=== PATIENT | male | born 1940 | race Caucasian/White ===

== ENCOUNTER 2019-03-04 06:22 | Outpatient (CLI) | payer MEDICARE, BC ==
[2019-03-04 11:20] LABS: PTT 32.1 SEC (22.9-36.1)
[2019-03-04 11:21] LABS: Hemoglobin 14.4 g/dL (14.0-18.0); Mean Corpuscular HGB CONC 33.3 g/dL (32.0-36.0); Mean Platelet Volume 8.5 fL (7.4-10.4); Platelet Count 170 thou/uL (130-400); RBC Distribution Width 11.9 % (11.5-14.5); Red Blood Cell (RBC) Count 4.51 mill/uL (4.70-6.10); White Blood Cell (WBC) Count 8.5 thou/uL (4.8-10.8)
[2019-03-04 11:28] LABS: Bilirubin Negative (Negative); Blood, Urine Negative (Negative); Clarity CLEAR (Clear); Glucose, Urine (Dipstick) Negative (Negative); Leukocyte Negative (Negative); Nitrite Negative (Negative); Protein, Urine (Dipstick) Negative (Neg-Trace); Specific Gravity, Urine 1.021 (1.002-1.036); Urobilinogen 0.2 mg/dL (0.2-1.0)
[2019-03-04 11:31] LABS: Bacteria/HPF None Seen HPF (None Seen); Hyaline Casts/LPF 0-3 HYALINE CAST LPF (0-3 Hyaline); RBC/HPF 0-3 HPF (0-3); Squamous Epithelial None Seen HPF (0-3); WBC/HPF None Seen HPF (0-3)
[2019-03-04 11:35] LABS: Anion Gap 12 mmol/L (10-20); BUN (Urea Nitrogen) 21 mg/dL (8.4-25.7); Calc. Creatinine Clearance 0 mL/min (70-130); Calcium 10.4 mg/dL (7.8-10.44); Carbon Dioxide 27 mmol/L (23-31); Chloride 105 mmol/L (98-107); Estimated GFR-MDRD 55; Glucose 154 mg/dL (83-110); Potassium 4.5 mmol/L (3.5-5.1); Sodium 139 mmol/L (136-145)
== END 2019-03-04 06:23 | disposition home or self-care (01) ==
LOC: LABBT 06:22
PROVIDERS: ATTEND Urology
DX: Z01.818 Encounter for other preprocedural examination (principal); N40.1 Benign prostatic hyperplasia with lower urinary tract symptoms; R35.1 Nocturia; R39.15 Urgency of urination
CPT/HCPCS: 80048; 81001; 85027; 85610; 85730; 87086; 93005; 93010

== ENCOUNTER 2019-03-13 05:55 | Observation (INO) | payer MEDICARE, BC ==
[2019-03-04 10:18] VITALS: BMI 27.0
[2019-03-13] MEDS ORDERED: Levofloxacin 500 mg/D5W 100 ml Premix Bag ONE (06:16)
[2019-03-13] MEDS ORDERED: Fentanyl 100 MCG/2 ML VIAL ONE ×3 (06:40→10:01)
[2019-03-13] MEDS ORDERED: B & O ONE (09:08)
[2019-03-13] MEDS ORDERED: Promethazine HCl 25 MG/ML VIAL IM PRN (09:25)
[2019-03-13] MEDS ORDERED: Promethazine HCl 25 MG/ML VIAL SLOW IVP PRN (09:25)
[2019-03-13] MEDS ORDERED: Ondansetron HCl/PF 4 MG/2 ML Vial IVP PRN (09:25)
[2019-03-13] MEDS ORDERED: Ondansetron PF 4 MG/2 ML Vial ONE (10:58)
[2019-03-13] MEDS ORDERED: PHENYLEPHRINE-NS 100 MCG/ML 10 ML SYRINGE ONE (10:58)
[2019-03-13] MEDS ORDERED: PROPOFOL 200 MG/20 ML VIAL ONE (10:58)
[2019-03-13] MEDS ORDERED: ePHEDrine 50 MG/ML VIAL ONE (10:58)
[2019-03-13] MEDS ORDERED: diphenhydrAMINE 25 MG CAP PO PRN (11:19)
[2019-03-13] MEDS ORDERED: Mag-Al 1200 mg/1200 mg/30 ML UDCUP PO PRN (11:19)
[2019-03-13] MEDS ORDERED: Bisacodyl 10 MG SUPP PR PRN (11:19)
[2019-03-13] MEDS ORDERED: hydrALAZINE 20 MG/ML VIAL SLOW IVP PRN (11:19)
[2019-03-13] MEDS ORDERED: Hyoscyamine Sulfate SL 0.125 mg Tablet SL PRN (11:19)
[2019-03-13] MEDS ORDERED: Acetaminophen 500 MG TAB PO PRN (11:19)
[2019-03-13] MEDS ORDERED: Ondansetron PF 4 MG/2 ML Vial IVP PRN (11:19)
[2019-03-13] MEDS ORDERED: Morphine 2 MG/ML SYRINGE SLOW IVP PRN (11:19)
[2019-03-13] MEDS ORDERED: traMADol HCl 50 MG TAB PO PRN (11:22)
--- NOTE | 2019-03-13 15:48 | OP ---
DATE OF PROCEDURE: 03/13/2019 SERVICE: Urology. PREOPERATIVE DIAGNOSIS: Benign prostatic hypertrophy. POSTOPERATIVE DIAGNOSIS: Benign prostatic hypertrophy. PROCEDURE PERFORMED: Transurethral resection of the prostate. INDICATIONS FOR PROCEDURE: Mr. Leong is a 78-year-old white male, who has BPH and significant lower urinary tract symptoms. He is on Flomax, which has helped, but not alleviated his symptoms. I discussed transurethral resection of the prostate with him with all risks and benefits discussed, and he has agreed to proceed forward. DESCRIPTION OF PROCEDURE: After identification of armband and verification of consent, the patient was brought back to the operating room, where he underwent general anesthesia with an LMA. He was placed in dorsal lithotomy position and prepped and draped in usual sterile fashion. After appropriate time-out, a lubricated 26-Bermudian visual obturator resectoscope sheath was inserted through the urethra, passed the prostate into the bladder. Both ureters were identified. The visual obturator was then switched out for the bipolar prostate resectoscope loop. Resection was started on the lateral anterior lobe, which was hanging out into the prostate. This was shaved down, and then the prostate was then circumferentially resected until near the capsule, but not through the capsule. The resection was taken from the bladder neck to the level of the verumontanum, taking care not to pass the verumontanum to avoid sphincteric injury. Bladder neck relaxing incisions were made at 5 and 7 o'clock to further open the bladder neck and the intervening tissue removed. Any residual prostate tissue, which was heaped up was also resected until everything was smooth. Meticulous hemostasis was performed, and all prostate chips were then evacuated. Re-inspection of the prostate revealed a few extra areas of hypertrophy, which were then further resected and cauterized. Final inspection after irrigation and removal of chips and decompression of the bladder demonstrated a wide-open prostate with no bleeding. The resectoscope was then removed with a bladder partially full and a 22-Bermudian 3-way catheter was inserted with ease into the bladder with 30 mL of sterile water instilled into the balloon. CBI was initiated. B and O suppository was placed in the patient's rectum. He was then taken out of lithotomy, had a StatLock, fixed, was awakened and taken to PACU for recovery in stable condition. COMPLICATIONS: None. ESTIMATED BLOOD LOSS: Minimal. RETAINED TUBES AND DRAINS: A 22-Bermudian three-way Altamirano catheter on CBI. SPECIMENS: Prostate chips. DISPOSITION: The patient will be held overnight for hematuria and CBI. We will plan a void trial in the morning and discharge tomorrow. Job ID: [id number]
[2019-03-13] MEDS ORDERED: Latanoprost 0.005% Ophth Soln 2.5 ml Bottle EA EYE SCH (21:00)
[2019-03-13] MEDS ORDERED: Atorvastatin Calcium 20 MG TAB PO SCH (21:00)
[2019-03-13] MEDS: Docusate 100 MG CAP PO SCH (21:17)
[2019-03-13] MEDS: Famotidine/PF 20 mg/2ml Vial SLOW IVP SCH (21:18)
[2019-03-13] MEDS: Oxybutynin 5 MG TAB PO PRN (21:21)
[2019-03-14 05:49] LABS: #Basophils 0.1 thou/uL (0.0-0.2); #Eosinphils 0.2 thou/uL (0.0-0.7); #Lymphocytes 2.8 thou/uL (1.20-3.40); #Monocytes 1.3 thou/uL (0.11-0.59); #Neutrophils 8.5 thou/uL (1.40-6.50); %Basophils 0.5 % (0.0-1.0); %Eosinophils 1.2 % (0.0-10.0); %Lymphocytes 21.5 % (21.0-51.0); %Monocytes 10.3 % (0.0-10.0); %Neutrophils 66.5 % (42.0-75.0); Hemoglobin 13.1 g/dL (14.0-18.0); Mean Corpuscular HGB CONC 33.4 g/dL (32.0-36.0); Mean Corpuscular Hemoglobin 32.2 pg (27.0-31.0); Mean Corpuscular Volume 96.5 fL (78.0-98.0); Mean Platelet Volume 8.5 fL (7.4-10.4); Platelet Count 163 thou/uL (130-400); RBC Distribution Width 11.9 % (11.5-14.5); Red Blood Cell (RBC) Count 4.06 mill/uL (4.70-6.10); White Blood Cell (WBC) Count 12.8 thou/uL (4.8-10.8)
[2019-03-14 06:23] LABS: Anion Gap 10 mmol/L (10-20); BUN (Urea Nitrogen) 16 mg/dL (8.4-25.7); Calc. Creatinine Clearance 68 mL/min (70-130); Calcium 9.6 mg/dL (7.8-10.44); Carbon Dioxide 25 mmol/L (23-31); Chloride 109 mmol/L (98-107); Estimated GFR-MDRD 59; Glucose 92 mg/dL (83-110); Potassium 4.7 mmol/L (3.5-5.1); Sodium 139 mmol/L (136-145)
[2019-03-14] MEDS: Famotidine/PF 20 mg/2ml Vial SLOW IVP SCH (08:43)
[2019-03-14] MEDS: Docusate 100 MG CAP PO SCH (08:43)
[2019-03-14] MEDS ORDERED: Prevnar 13-Val Conj/PF 0.5 ML SYRINGE IM ONE (09:00)
[2019-03-14] MEDS ORDERED: Timolol 0.25% Ophth Soln 5 ml Bottle R EYE SCH (09:00)
[2019-03-14] MEDS: Oxybutynin 5 MG TAB PO PRN (09:01)
[2019-03-14 11:58] VITALS: BP 134/77; TEMP 98.2
--- NOTE | 2019-03-15 10:26 | DIS ---
DATE OF ADMISSION: 03/13/2019 DATE OF DISCHARGE: 03/14/2019 (Observation only). HISTORY: Please see detailed H and P. In short, Mr. Leong is a 78-year-old gentleman with very bothersome urinary tract symptoms. He was brought to the operating room on 03/13/2019, for surgical therapy. HOSPITAL COURSE: The patient underwent transurethral resection of the prostate by Dr. Barbosa on 03/13/2019. There were no postoperative complications. He was maintained on continuous bladder irrigation overnight. He was discontinued in the morning on 03/14/2019. His urine remained clear, off CBI, and Altamirano catheter was removed. The patient demonstrates to the ability to void prior to discharge. DISCHARGE MEDICATIONS: As per Dr. Barbosa and followup. The patient has a followup appointment with Dr. Barbosa next week. Job ID: [id number]
== END 2019-03-14 14:45 | disposition home or self-care (01) ==
LOC: SDC 05:55 → SJJU 10:57
PROVIDERS: ADMIT Urology; ATTEND Urology
PROC: 0VT08ZZ Resection of Prostate, Via Natural or Artificial Opening Endoscopic (ICD-10-PCS; principal; 2019-03-13)
DX: N40.1 Benign prostatic hyperplasia with lower urinary tract symptoms (principal); N41.1 Chronic prostatitis; C18.9 Malignant neoplasm of colon, unspecified; H40.9 Unspecified glaucoma; E04.9 Nontoxic goiter, unspecified; Z79.899 Other long term (current) drug therapy
CPT/HCPCS: 52601; 80048; 85025; 88305; 96374; G0378 ×2; 36415; J0690; J1956; J2405; J2704; J3010; J3490; S0028